=== PATIENT | female | born 1960 | race Caucasian/White ===

== ENCOUNTER 2021-04-17 15:35 | Inpatient (IN) | payer OTHER, SELFPAY ==
[~2021-04-17] VITALS: Ht 154.9 cm; Wt 54.0 kg
[2021-04-17 15:35] VITALS: BP_SYST 128
--- NOTE | 2021-04-17 15:35 | NUR ---
BROUGHT IN BY [facility] AND PLACED IN HALLWAY, TRIAGED, REPORT GIVEN TO MIRTHA
--- NOTE | 2021-04-17 15:40 | NUR ---
Pt bib EMS from [place] for n/v and failure to thrive x4 days. V/S stable, no acute distress noted.
--- NOTE | 2021-04-17 16:20 | NUR ---
ER Dr. Amaya at bedside examining patient.
--- NOTE | 2021-04-17 17:05 | NUR ---
Patient transported to radiology via gurney, accompanied by staff.
--- NOTE | 2021-04-17 17:05 | NUR ---
# 20 gauge angiocath placed to LFA. Use of asceptic technique. Opsite placed over site. Blood return noted. Blood for lab drawn from site. Flushed with 10 cc of normal saline. No evidence of infiltration noted. Patient tolerated well.
[2021-04-17] MEDS ORDERED: MORPHINE 2 MG/ML INJ. SYRINGE IVP ONE ×2 (17:15→20:15)
[2021-04-17 17:31] LABS: BASOPHILS % (AUTO) 0.3 % (0.0-2.0); EOSINOPHILS # (AUTO) 0.3 K/uL (0.0-0.4); EOSINOPHILS % (AUTO) 1.9 % (0.0-4.0); HEMATOCRIT 26.3 % (36-48); HEMOGLOBIN 8.9 g/dL (12.0-16.0); LYMPHOCYTES # (AUTO) 0.7 K/uL (1.0-5.5); MEAN CORPUSCULAR HEMOGLOBIN 35 pg (27-31); MEAN CORPUSCULAR HGB CONC 34 % (32-36); MEAN CORPUSCULAR VOLUME 103 fL (79.0-98.0); MONOCYTES # (AUTO) 0.9 K/uL (0.0-1.0); NEUTROPHILS # (AUTO) 11.4 K/uL (1.8-7.7); NEUTROPHILS % (AUTO) 85.8 % (40.0-70.0); PLATELET COUNT (AUTO) 182 K/uL (130-430); RED BLOOD CELL COUNT(AUTO) 2.54 MIL/uL (4.2-6.2); WHITE BLOOD COUNT (AUTO) 13.3 K/uL (4.8-10.8)
[2021-04-17 17:49] LABS: ANION GAP 11 (5-15); CALCIUM 8.4 mg/dL (8.4-11.0); CHLORIDE 97 mmol/L (98-107); CREATININE 1.17 mg/dL (0.55-1.30); GLUCOSE 173 mg/dL (70-99); SODIUM SERUM 133 mmol/L (136-145); UREA NITROGEN, BLOOD 24 mg/dL (8-21)
[2021-04-17 18:08] LABS: ALANINE AMINOTRANSFERASE 32 U/L (12-78); ALBUMIN 2.5 g/dL (3.4-4.8); ASPARTATE AMINOTRANSFERASE 77 U/L (10-37); LIPASE 38 U/L (73-393); PHOSPHORUS 3.8 mg/dL (2.7-4.5); TOTAL BILIRUBIN 3.7 mg/dL (0.0-1.0)
[2021-04-17 18:14] LABS: ALCOHOL, BLOOD < 3 mg/dL (<10); GFR AFRICAN AMERICAN 60 mL/min (>90); INR 1.2 (0.8-1.2); POTASSIUM 2.6 mmol/L (3.5-5.1); PROTHROMBIN TIME 13.2 SECS (9.5-12.5)
[2021-04-17] MEDS ORDERED: KCL 40 mEq in 100 mL (PREMIX) 100 ML IV ONE (18:15)
[2021-04-17] MEDS ORDERED: PIPERACILLIN/TAZO 3.375 GM in NS 50 ML IV ONE (18:15)
[2021-04-17] MEDS ORDERED: VANCOMYCIN HCL 1,000 MG in NS 250 ML IV ONE (18:15)
[2021-04-17] MEDS ORDERED: POTASSIUM CHLORIDE 20 MEQ/PKT PACKET PO ONE (18:15)
[2021-04-17] MEDS ORDERED: POTASSIUM CHLORIDE 40 MEQ in NS 250 ML IV ONE (18:30)
[2021-04-17] MEDS ORDERED: VANCOMYCIN HCL 1000 MG/VIAL IV ONE (18:31)
[2021-04-17] MEDS ORDERED: PIPERACILLIN/TAZOBACTAM 3.375 GM/VIAL (ZOSYN) IV ONE (18:31)
--- NOTE | 2021-04-17 19:00 | NUR ---
Care of patient endorsed to MUKESH Serrano. Pt currently resting in bed, no acute distress noted.
[2021-04-17 20:25] LABS: BILIRUBIN,URINE NEGATIVE (NEGATIVE); BLOOD, URINE TRACE (NEGATIVE); CLARITY/URINE CLEAR (CLEAR); COLOR,URINE YELLOW (YELLOW); GLUCOSE,URINE NEGATIVE (NEGATIVE); KETONES,URINE NEGATIVE (NEGATIVE); LEUKOCYTE ESTERASE ,URINE NEGATIVE (NEGATIVE); NITRITE, URINE NEGATIVE (NEGATIVE); PROTEIN URINE NEGATIVE (NEGATIVE); UROBILINOGEN,URINE 0.2 (0.2-1.0)
[2021-04-17 20:27] LABS: BACTERIA,URINE None Seen /HPF (None Seen); CALCIUM PHOSPHATE CRYSTALS,UR None Seen /HPF (None Seen); TRICHOMONAS,URINE None Seen /HPF (None Seen); WBC,URINE NONE SEEN /HPF (0-3)
[2021-04-17] MEDS ORDERED: MAGNESIUM SULFATE 50 ML IV ONE (20:30)
--- NOTE | 2021-04-17 20:41 | NUR ---
VSS no s/s of acute distress Resting on gurney
--- NOTE | 2021-04-17 21:00 | NUR ---
IVF + K replacement well tolerated
--- NOTE | 2021-04-17 22:05 | NUR ---
Dr. Amaya ordered more morphone for pain control, effective AEB pt stated " feeling a little better "
--- NOTE | 2021-04-17 23:00 | NUR ---
IV Mag replacement well tolerated. Dr. Melara at bedside for pt eval
[2021-04-17] MEDS ORDERED: ALLO100T PO (23:12)
[2021-04-17] MEDS ORDERED: PANT20TA2 PO (23:12)
[2021-04-17] MEDS ORDERED: INSU100V9 SQ (23:12)
[2021-04-17] MEDS ORDERED: RIFA200T10 PO (23:12)
[2021-04-17] MEDS ORDERED: LEVA1.2527 NEB (23:12)
[2021-04-17] MEDS ORDERED: SPIRIVA INH (23:12)
[2021-04-17] MEDS ORDERED: AMLO2.5T2 PO (23:12)
[2021-04-17] MEDS ORDERED: LACT10SO6 PO (23:12)
[2021-04-17] MEDS ORDERED: BUDE6HFA INH (23:12)
[2021-04-17] MEDS ORDERED: TRAM50TA2 PO (23:12)
[2021-04-17] MEDS ORDERED: POTA20TA83 PO (23:12)
[2021-04-17] MEDS ORDERED: FURO40SO5 PO (23:12)
[2021-04-17] MEDS ORDERED: SPIR25TA6 PO (23:12)
[2021-04-17] MEDS ORDERED: ACET325T PO ×2 (23:12)
[2021-04-17] MEDS ORDERED: traMADol HCL HCL 50 MG TABLET (ULTRAM) PO PRN ×2 (23:30→23:45)
[2021-04-17] MEDS ORDERED: INSULIN REGULAR, HUMAN 100 UNITS/ML, 10 ML VIAL (humuLIN R) SUBCUT PRN (23:30)
[2021-04-17] MEDS ORDERED: ACETAMINOPHEN 325 MG TABLET PO PRN ×2 (23:30)
[2021-04-17] MEDS ORDERED: DEXTROSE 50% JECT 50 ML DISP.SYRIN IVP PRN (23:30)
[2021-04-17] MEDS ORDERED: ONDANSETRON HCL 4 MG/2 ML VIAL IVP PRN (23:45)
[2021-04-18] VITALS (7 sets, daily range): BP systolic 116–132
--- NOTE | 2021-04-18 00:15 | NUR ---
Patient will be admitted to care of Dr. Melara. Admitted to Tele unit. Will go to room 122. Belongings list completed. Complete and up to date summary report printed. SBAR report to be given at bedside with opportunity for questions.
--- NOTE | 2021-04-18 00:15 | NUR ---
pt.received via er-dept.pt's repost britney navarrorn.pt.presents admit dx pna,sepsis.pt.presents iv access location;lt.forearm iv lock. pt. presents congestion;o2 sat%91%w u/out o2 therapy.pt.presents activity status bedrest.lower extremities weakness. pt.presents wounds;location;lt.lower extremity.call light/telephone placed w/in access of the pt.
--- NOTE | 2021-04-18 00:15 | NUR ---
Transfer to Tele via ACLS protocol. Licensed nurse present. IV present no signs or symptoms of infiltration.
[2021-04-18] MEDS: AZITHROMYCIN 500 MG in NS 250 ML IV SCH (01:21)
[2021-04-18] MEDS ORDERED: AZITHROMYCIN 500 MG/VIAL (ZITHROMAX) IV ONE (01:21)
[2021-04-18] MEDS ORDERED: PIPERACILLIN/TAZOBACTAM 3.375 GM/VIAL (ZOSYN) IV ONE (01:21)
[2021-04-18] MEDS: PIPERACILLIN/TAZO 3.375/DEX-IS 50 ML IV SCH ×5 (01:21→23:48)
[2021-04-18] MEDS: IPRATROPIUM/ALBUTEROL SULFATE 3 ML AMPUL.NEB (DUONEB) INH PRN ×2 (01:46→10:35)
[2021-04-18] MEDS: LR 1,000 ML IV SCH ×3 (02:00→22:10)
[2021-04-18] MEDS: MORPHINE 4 MG INJ. 4 MG/ML VIAL IVP PRN (03:26)
[2021-04-18] MEDS: RIFAXIMIN 200 MG TABLET PO SCH ×3 (05:29→21:55)
--- NOTE | 2021-04-18 06:30 | NUR ---
i have initiated the iv fluids abx zosyn,zithromax administration.blood glucose assessed 178mg/dl.sliding scale initiated@201mg/pt.required morphine ivp. ordered ;morphine 2mg ivp q-4hrs/prn.pt.presented wounds;lt.lower extremity/sacrum.i have attended to the photographs/wound care wcn order place.pt.repositioned q-2hrs.o2-therapy placed 02-sat%=98%.2l/alba.call light/telephone place w/in access of the pt.
[2021-04-18 06:59] LABS: BASOPHILS % (AUTO) 0.3 % (0.0-2.0); EOSINOPHILS # (AUTO) 0.3 K/uL (0.0-0.4); EOSINOPHILS % (AUTO) 2.2 % (0.0-4.0); HEMATOCRIT 23.6 % (36-48); HEMOGLOBIN 7.7 g/dL (12.0-16.0); LYMPHOCYTES # (AUTO) 0.8 K/uL (1.0-5.5); LYMPHOCYTES % (AUTO) 5.6 % (20.5-51.5); MEAN CORPUSCULAR HEMOGLOBIN 35 pg (27-31); MEAN CORPUSCULAR HGB CONC 33 % (32-36); MEAN CORPUSCULAR VOLUME 105 fL (79.0-98.0); MONOCYTES # (AUTO) 1.1 K/uL (0.0-1.0); MONOCYTES % (AUTO) 8.2 % (1.7-9.3); NEUTROPHILS # (AUTO) 11.5 K/uL (1.8-7.7); NEUTROPHILS % (AUTO) 83.7 % (40.0-70.0); PLATELET COUNT (AUTO) 169 K/uL (130-430); RED BLOOD CELL COUNT(AUTO) 2.25 MIL/uL (4.2-6.2); RED CELL DISTRIBUTION WIDTH 18.7 % (9.0-15.0); WHITE BLOOD COUNT (AUTO) 13.8 K/uL (4.8-10.8)
--- NOTE | 2021-04-18 08:15 | NUR ---
PT. REQUESTED BREATHING TX, UPON RETURNING WITH MEDICATION, PT. WAS ASLEEP AND WANTS TO TAKE TX AT LATER TIME. NO ACUTE DISTRESS NOTED AT THIS TIME, WILL CONTINUE TO MONITOR.
[2021-04-18] MEDS: LACTULOSE 20 GM/30 ML UDC PO SCH ×2 (08:43→21:48)
[2021-04-18] MEDS: SPIRONOLACTONE 25 MG TABLET (ALDACTONE) PO SCH (08:44)
[2021-04-18] MEDS: ALLOPURINOL 100 MG TABLET (ZYLOPRIM) PO SCH ×2 (08:44→21:48)
[2021-04-18] MEDS: amLODIPine BESYLATE 5 MG TABLET PO SCH (08:45)
[2021-04-18] MEDS: POTASSIUM CHLORIDE 20 MEQ TAB.PRT.SR PO SCH ×3 (08:45→21:49)
[2021-04-18 08:49] LABS: CALCIUM 7.4 mg/dL (8.4-11.0); CREATININE 1.05 mg/dL (0.55-1.30); TOTAL BILIRUBIN 3.1 mg/dL (0.0-1.0)
[2021-04-18 08:53] LABS: POTASSIUM 2.9 mmol/L (3.5-5.1)
[2021-04-18] MEDS ORDERED: POTASSIUM CHLORIDE 10 MEQ TAB.PRT.SR PO SCH (09:00)
[2021-04-18] MEDS ORDERED: NON-FORMULARY MEDICATION (Lactulose 30 GM) PO SCH (09:00)
--- NOTE | 2021-04-18 09:58 | NUR ---
CT CHEST W/O CONTRAST: PATIENT TO RADIOLOGY VIA WHEELCHAIR BY TECH IN STABLE CONDITION.
--- NOTE | 2021-04-18 10:45 | NUR ---
Nutrition Update Yfn Scale 11 noted. Pt admitted for sepsis, pneumonia. Diet: Mechanical soft, CCHO low carb-45 gm diet w/ Glucerna BID BMI: 22.4 kg/m2 RD to follow per nutrition care standards.
[2021-04-18] MEDS ORDERED: POTASSIUM CHLORIDE 20 MEQ TAB.PRT.SR PO ONE (12:30)
--- NOTE | 2021-04-18 12:46 | NUR ---
Md Rounds: Patient seen by Dr. Melara and informed him patient is a hard stick,with orders for picc line placement.
--- NOTE | 2021-04-18 12:55 | NUR ---
CONSULTATION PAGED/CALLED Reason for Consultation: COPD Person Who was Notified: ALFRED Consulting Physician: BRADY Sheet Metal Shop Helper Specialty: Ordering Physician: AMANDA
--- NOTE | 2021-04-18 12:58 | NUR ---
CONSULTATION PAGED/CALLED Reason for Consultation: ANEMIA Person Who was Notified: JOSH Consulting Physician: KEITH Educational Assistant Specialty: GI Ordering Physician: AMANDA
--- NOTE | 2021-04-18 13:05 | NUR ---
WOUND EVALUATION: Late note for 04/18/2021 at 1305 secondary to patient care. Wound Consult received from Dr. Melara. Thank you, Dr. Melara, for the consult. Patient received in a [place] Bed with an IsoFlex TAMMI mattress, awake, alert, confused. Patient is unable to turn in bed independently. Yfn Score is an 11. Past Medical History: Diabetes Mellitus, COPD, Anemia, Hypertension, Alcoholism, Asthma, Renal Disease, Hyperuricemia, GERD, tobacco use. Recent Labs: WBC 13.8, RBC 2.25, hemoglobin 7.7, hematocrit 23.6, potassium 2.9, BUN 20, creatinine 1.05, GFR 56, glucose 194, POC glucose 186, calcium 7.4, AST 50, ALT 26, alkaline phosphatase 270, serum total protein 6.1, albumin 2.0, PT 13.2. Microbiology: Blood culture results x2 in progress. Urine culture results in progress. MRSA screen results in progress. Intrinsic factors that delay wound healing: Diabetes Mellitus, COPD, Anemia, Alcoholism, Asthma, Renal Disease, tobacco use. Extrinsic factors that delay wound healing: Decreased mobility. Wound Assessment: 1. Left Distal Anterior Johnson: Unstageable pressure ulcer, present on admission. Wound bed has 60% yellow slough, 35% black slough, 5% red tissue. No odor, scant to small yellow drainage. Periwound intact with scar tissue. Surrounding tissue has blanchable redness. Wound measures 8.3 cm x 5.0 cm. Recommend: Cleanse wound with normal saline. Apply moisture barrier cream to candelaria-wound. Apply Venelex ointment to wound bed. Cover with foam dressing. Perform wound care daily, and as needed for dressing soiling or dislodgement. Also recommend: Encourage and assist patient with repositioning side to side only 2 hours with pillow support and off-load pressure areas with pillows for pressure re-distribution. Offload, elevate and float bilateral heels with pillows. Perform skin care and monitor skin integrity Q shift. Use moisture barrier cream on buttocks and other moisture susceptible areas QID and as needed for soiling. Initiate low air-loss therapy.
[2021-04-18 14:21] LABS: FREE T4 (FREE THYROXINE) 1.4 ng/dl (0.8-1.5); THYROID STIMULATING HORMONE 5.55 uIu/mL (0.36-3.74)
[2021-04-18 14:23] LABS: TOTAL IRON BIND. CAPACITY 152 ug/dL (250-450)
--- NOTE | 2021-04-18 16:00 | NUR ---
Midline Placement: Midline placement done.No problem.
--- NOTE | 2021-04-18 16:08 | NUR ---
Dietitian Recommendations * Mechanical soft, CCHO low carb-45 gm diet w/ Glucerna BID, Nelson BID (supplements provide an additional 620 kcal/day, 25 gm protein/day) RODRI, HANNAH Please refer to Nutrition Assessment for details. Addendum: 04/18/21 at [address] Amended: Links added.
[2021-04-18 16:19] LABS: INR 1.2 (0.8-1.2); PROTHROMBIN TIME 13.2 SECS (9.5-12.5)
--- NOTE | 2021-04-18 18:49 | NUR ---
closing notes: Pt in bed resting, PICC line in place and patent. No s/s of respiratory distress, NC at 2L. Dinner at bedside.
--- NOTE | 2021-04-18 19:30 | NUR ---
CHANGE OF SHIFT; endorsed by day shift. with DX PNA. on bed alarm/ call light within reach.
[2021-04-18] MEDS: ALBUTEROL SULFATE 0.083% 2.5 MG/3 ML VIAL.NEB INH SCH (19:36)
[2021-04-18] MEDS: BUDESONIDE 0.5 MG/2 ML AMPUL.NEB INH SCH (19:37)
[2021-04-18] MEDS: IPRATROPIUM BROM 0.5 MG/2.5 ML VIAL.NEB (ATROVENT) INH SCH (19:37)
--- NOTE | 2021-04-18 20:00 | NUR ---
OTES: pt. checked, getting her breathing treatment, on high fowlers position. pt. friend/room mate at bedside. pt. noted short of breath non exertion, sounds gurgly, productive cough but unable to expectorate. IV via rt. upper arm with midline catheter. another IV lock on left forearm. pt. gets incontinent. bed alarm on. will put on 2 liters per nasal canulla after treatment. on maintenance planning clerk and shows sinus tach.
[2021-04-18] MEDS ORDERED: INSULIN GLARGINE 100 UNITS/ML 10 ML VIAL SQ SCH (21:00)
[2021-04-19] MEDS: MORPHINE 4 MG INJ. 4 MG/ML VIAL IVP PRN ×2 (00:03→14:10)
[2021-04-19] MEDS: AZITHROMYCIN 500 MG in NS 250 ML IV SCH (00:05)
[2021-04-19] MEDS: ALBUTEROL SULFATE 0.083% 2.5 MG/3 ML VIAL.NEB INH SCH ×4 (00:39→19:41)
[2021-04-19] MEDS: IPRATROPIUM BROM 0.5 MG/2.5 ML VIAL.NEB (ATROVENT) INH SCH ×4 (00:39→19:41)
--- NOTE | 2021-04-19 01:35 | NUR ---
NOTES: pt. getting very anxious, wants to get out of bed, verbalized that she is scared, charge nurse was there in the room. pt. saying she can't breathe, O2 on @ 2liters per nasal cannula, O2 sat 88-90%. still with productive cough but unable to expectorate. called RT for breathing treatment. pt. incontinent and changed pads. pt.is sinus tach HR 130
--- NOTE | 2021-04-19 01:45 | NUR ---
NOTES :RT at bedside and pt. removing mask, stayed with pt. to keep mask for the breathing treatment, still saying she cant breathe, suctioned nasally with small amts. of sputum, also use yankauer for oral suction. pt. was put on oximizer by RT.
[2021-04-19 02:27] VITALS: BP_SYST 138
[2021-04-19 04:45] VITALS: BP_SYST 138
[2021-04-19 05:08] LABS: FOLATE (FOLIC ACID) 14.1 ng/mL (>3.0)
--- NOTE | 2021-04-19 05:10 | NUR ---
NOTES: called Dr. Leal about pt. condition. O2 sat staying 89% on 10 liters O2 per oximizer. stat ABG ordered. RT informed.
--- NOTE | 2021-04-19 05:30 | NUR ---
NOTES: called Dr. Leal for ABG result with orders. (see orders). ordered BIPAP and will put restraints. been trying to call family but no number on the face sheet, called [place] but the number was a neighbor .
[2021-04-19] MEDS: PIPERACILLIN/TAZO 3.375/DEX-IS 50 ML IV SCH ×3 (05:47→18:03)
[2021-04-19] MEDS: LR 1,000 ML IV SCH ×2 (05:49→09:29)
--- NOTE | 2021-04-19 05:50 | NUR ---
NOTES: pt. phone and was able to charge and retrieve her sister Sahra solano. charge nurse talked to her , pt. wants her to come. pt. getting confused, keep saying " she is gonna ". pt. keeps taking off O@. pt. repositioned, changed pads. had loose stool and sent for occult blood and sputum for culture as ordered.
[2021-04-19] MEDS ORDERED: ALPRAZolam 0.25 MG TABLET PO PRN (06:00)
[2021-04-19] MEDS: RIFAXIMIN 200 MG TABLET PO SCH ×2 (06:00→15:49)
--- NOTE | 2021-04-19 06:00 | NUR ---
NOTES: RT set up the BIPAP, just waiting for the sister to come. condition guarded.
--- NOTE | 2021-04-19 06:40 | NUR ---
Closing nots; pt. sister Sahra here and updated on pt. status including BIPAP and restraints, need to sign for consent and did. for close observation. IVF patent, IV antibiotic given. PCR for COVID, placed on isolation for PUI Covid. will endorse to incoming shift. CXR done at bedside. rdered arterial and venous doppler of both lower extremity. noted left eg wpound and foot cyanotic and informed MD. bed alarm on.
[2021-04-19 07:27] LABS: BASOPHILS # (AUTO) 0.1 K/uL (0.0-0.2); BASOPHILS % (AUTO) 0.3 % (0.0-2.0); EOSINOPHILS # (AUTO) 0.3 K/uL (0.0-0.4); EOSINOPHILS % (AUTO) 1.5 % (0.0-4.0); HEMATOCRIT 27.5 % (36-48); HEMOGLOBIN 8.7 g/dL (12.0-16.0); LYMPHOCYTES # (AUTO) 0.4 K/uL (1.0-5.5); LYMPHOCYTES % (AUTO) 1.8 % (20.5-51.5); MEAN CORPUSCULAR HEMOGLOBIN 34 pg (27-31); MEAN CORPUSCULAR HGB CONC 32 % (32-36); MEAN CORPUSCULAR VOLUME 108 fL (79.0-98.0); MONOCYTES # (AUTO) 1.7 K/uL (0.0-1.0); MONOCYTES % (AUTO) 7.4 % (1.7-9.3); NEUTROPHILS # (AUTO) 20.4 K/uL (1.8-7.7); PLATELET COUNT (AUTO) 276 K/uL (130-430); RED BLOOD CELL COUNT(AUTO) 2.56 MIL/uL (4.2-6.2); RED CELL DISTRIBUTION WIDTH 18.9 % (9.0-15.0); WHITE BLOOD COUNT (AUTO) 22.9 K/uL (4.8-10.8)
[2021-04-19] MEDS: methylPREDNISolone SOD SUCC 40 MG/ML VIAL IVP SCH ×3 (07:39→18:03)
--- NOTE | 2021-04-19 08:00 | NUR ---
Morning Rounds: Pt. sitting in bed,on high fowlers position. pt. friend/room mate at bedside. pt. noted short of breath non exertion, sounds gurgley, productive cough but unable to expectorate. IV via ONI with midline catheter, another IV lock on left forearm. pt. incontinent. bed alarm on, and in locked low position. On ekg monitor tech and shows sinus tach.
[2021-04-19] MEDS: BUDESONIDE 0.5 MG/2 ML AMPUL.NEB INH SCH ×2 (08:03→19:41)
--- NOTE | 2021-04-19 08:03 | NUR ---
rt notes 0803 Pt placed on bipap per MD order, pt tolerating well. KS> 92%. pt kept on trying to remove mask, pt on restraint. will continue to monitor pt.
[2021-04-19 08:28] LABS: CALCIUM 8.1 mg/dL (8.4-11.0); CREATININE 1.22 mg/dL (0.55-1.30); PHOSPHORUS 3.6 mg/dL (2.7-4.5); POTASSIUM 5.7 mmol/L (3.5-5.1); TOTAL BILIRUBIN 3.5 mg/dL (0.0-1.0)
[2021-04-19] MEDS ORDERED: BALSAM PERU/CASTOR OIL 60 GM OINT...G. TP SCH (09:00)
[2021-04-19] MEDS ORDERED: PANTOPRAZOLE SODIUM 40 MG TAB PO SCH (09:00)
[2021-04-19 09:20] VITALS: BP_SYST 122
[2021-04-19] MEDS: POTASSIUM CHLORIDE 20 MEQ TAB.PRT.SR PO SCH (09:22)
[2021-04-19] MEDS: SPIRONOLACTONE 25 MG TABLET (ALDACTONE) PO SCH (09:23)
[2021-04-19] MEDS: amLODIPine BESYLATE 5 MG TABLET PO SCH (09:23)
[2021-04-19] MEDS: LACTULOSE 20 GM/30 ML UDC PO SCH (09:24)
[2021-04-19] MEDS: ALLOPURINOL 100 MG TABLET (ZYLOPRIM) PO SCH (09:24)
--- NOTE | 2021-04-19 12:00 | NUR ---
Lunch Rounds: Pt. sitting in bed, on high fowlers position. pt. friend/room mate at bedside. pt. noted does not like BiPaP mask on and tries to take it off, sounds gurgley, productive cough but unable to expectorate. Bilateral wrist restraints in place. IV via ONI with midline catheter, another IV lock on left forearm. pt. incontinent. bed alarm on, and in locked low position. On color television console monitor and shows sinus tach.
[2021-04-19 12:29] VITALS: BP_SYST 126
[2021-04-19] MEDS ORDERED: FUROSEMIDE 20 MG/2 ML VIAL IVP ONE (13:15)
--- NOTE | 2021-04-19 14:33 | NUR ---
CONSULTATION PAGED REASON FOR CONSULTATION:CHF WAS CONSULT CALED?Y PERSON WHO WAS NOTIFIED:JONES CONSULTING PHYSICIAN:ARGENTINA FLEMING IN SHOP SERVICE TECHNICIAN SPECIALTY:CARDIO IN SHOP SERVICE TECHNICIAN PHONE [phone]: REQUESTING PHYSICIAN:ANGELICA BARRAGAN
--- NOTE | 2021-04-19 16:00 | NUR ---
BiPaP break: RT switch to non rebreather mask at 10L, at 90%. Gave medication and changed, pt desat to low 70's high 60's, attempting to pull the mask off. Had RT put back on BiPap, SpO2 back to 90%.
--- NOTE | 2021-04-19 16:00 | NUR ---
rt notes 1600 tried to offload pt from bipap but within 10-15 mins, pt desaturated to 60s per RN. Pt placed back to bipap, will continue to monitor pt. saturating 93%.
[2021-04-19 16:10] VITALS: BP_SYST 124
--- NOTE | 2021-04-19 18:30 | NUR ---
Cardio rounds: Dr Schwab saw pt, seen venous arterial preliminary results. Did venous Doppler on both lower extremities. then ordered Lovenox and medical records from [facility], pt was admitted there 2 weeks ago. will endorse to overnight associate.
[2021-04-19] MEDS ORDERED: *LOVENOX 1MG/KG Q12H/PHARMACY XX ONE (18:45)
--- NOTE | 2021-04-19 18:49 | NUR ---
Closing Notes: Pt resting in high fowlers, with Bipap, bilateral wrist restraints, isolation precautions for PUI in place, SPO2 at 95%. pt calmer then this morning. Order for CT of bilateral lower extremities w/wo contrast.
--- NOTE | 2021-04-19 19:15 | NUR ---
OPENING NOTES Patient resting in bed -no s/s pain or distress noted. Respirations even and unlabored - head of bed elevated. IV site patent - no s/s redness, infection, or infiltration. Bed locked and in lowest position. Call light within reach. Bed alarm on.
[2021-04-19 20:00] VITALS: BP_SYST 124
[2021-04-19] MEDS ORDERED: ENOXAPARIN SODIUM 60 MG/0.6 ML SYRINGE SUBCUT SCH (21:00)
--- NOTE | 2021-04-19 21:24 | NUR ---
CONSENT RECEIVED FOR CTA LOWER EXTREMITY CONSENT GIVEN BY SISTER FILIBERTO AT THISTIME
[2021-04-19] MEDS ORDERED: IOHEXOL 350 mgI/mL, 150 ML INFUS..BTL IV ONE (21:56)
--- NOTE | 2021-04-19 22:31 | NUR ---
PATIENT LEAVES TO RADIOLOGY ESCORTED OUT BY GLOBAL CEO LEO WITH CONSENT SIGNED. INFORMED PATIENT IS CURRENTLY ON BIPAP AND NEEDS O2.
--- NOTE | 2021-04-19 23:00 | NUR ---
PATIENT ARRIVES BACK FROM RADIOLOGY WITH REINSTATEMENT CLERK "LORELEI" Patient not receiving O2 therapy whilst on bed returning to room Addendum: 04/20/21 at 0740 by Afshin Melissa RN STATES THEY ASKED A NURSE IN THE HALLWAY THEIR VITALS, LOW BP AND HIGH HEART RATE. UPON RECEIVING PATIENT EYES WERE BULGING, UNRESPONSIVE. CYANOTIC SKIN. Addendum: 04/20/21 at 0820 by Afshin Melissa RN REINSTATEMENT CLERK LORELEI STATES THIS AT TIME OF RETURNING TO ROOM WHEN RN NOTICES PATIENT EYES BULGING, UNRESPOSNIVE. SKIN CYANOTIC. INFORMED BY COMPONENT ENGINEER HEIDI TELE-RHYTHM SHOWS ASYSTOLE. RADIOLOGY IS OUTSIDE THE RANGE OF THE TELEMONITOR. UPON RETURN TO 122B, PATIENT IS WITHIN RANGE AGAIN. ASYSTOLE SHOWS SOON PATIENT RETURNS - RN SHOWS UP TO CHECK ROOM 122B TO SEE IF PATIENT IS THERE.
--- NOTE | 2021-04-19 23:01 | NUR ---
CODE BLUE INITIATED NO PULSE FELT UPON RETURNING FROM RADIOLOGY
--- NOTE | 2021-04-19 23:34 | NUR ---
CALLED FAMILY APPROXIMATELY AT THIS TIME, CHILD ABUSE WORKER BELLA CALLS FAMILY MEMBER FILIBERTO DOMINGUEZ TO NOTIFY OF PATIENT TIME OF ANNOUNCED.
--- NOTE | 2021-04-19 23:37 | NUR ---
DR PATEL NOTIFIED OF PT EXPIRING
--- NOTE | 2021-04-19 23:45 | NUR ---
DR BRADY ABREU IN HOSPITAL AWARE OF PT EXPIRING
--- NOTE | 2021-04-19 23:54 | NUR ---
LINUX SERVER ENGINEER AND [employer] CALLED LINUX SERVER ENGINEER CASE AGENT HO CASE CLOSED [employer] , AGENT NIKITA
--- NOTE | 2021-04-20 00:47 | NUR ---
NOTIFIED DOCTOR BULMARO NOTIFED EXCHANGE RANDI THAT PT
--- NOTE | 2021-04-20 01:30 | NUR ---
APPROXIMATELY AROUND THIS TIME, CALLED SISTER FILIBERTO THOMPSON REGARDING MORTUARY Called back and forth within the hour regarding mortuary of choice. Filiberto Thompson is sister, called. Initially states "I am still figuring out what mortuary." Asked for address to find nearest mortuary - gives name "[facility]" [place] [phone]. [facility]
--- NOTE | 2021-04-20 01:35 | NUR ---
APPROXIMATELY AT THIS TIME, CALLED [facility] INFORMED [facility] OF PATIENT, FAMILY MEMBER FILIBERTO PICKS THIS SERVICE. STATES WILL BE ABLE TO POLICE CRIME SCENE TECHNICIAN IN MORNING.
--- NOTE | 2021-04-20 05:34 | NUR ---
[facility] STATES PICKUP TIME BETWEEN [phone].
[2021-04-20] MEDS ORDERED: EPINEPHrine JECT 0.1 MG/ML SYR ONE (08:19)
[2021-04-20] MEDS ORDERED: SODIUM BICARBONATE 8.4% JECT 50 MEQ/50 ML SYRINGE ONE (08:19)
[2021-04-20] MEDS ORDERED: CALCIUM CHLORIDE 1 GM/10 ML DISP.SYRIN (14 mEq Ca++/SYR) ONE (08:19)
[2021-04-20] MEDS ORDERED: ATROPINE SULFATE 1 MG/10 ML SYRINGE IVP ONE (08:19)
[2021-04-20] MEDS ORDERED: DEXTROSE 50% JECT 50 ML DISP.SYRIN ONE (08:19)
[2021-04-20] MEDS ORDERED: NS 1000 ML IV.SOLN IV ONE (08:19)
[2021-04-20] MEDS ORDERED: FUROSEMIDE 20 MG TABLET PO SCH (09:00)
== END 2021-04-19 22:34 | DRG 720 ==
LOC: SED 15:35 → STU 21:53
PROVIDERS: ADMIT Internal Medicine; ATTEND Internal Medicine
PROC: 5A12012 Performance of Cardiac Output, Single, Manual (ICD-10-PCS; principal; 2021-04-19)
PROC: 0BH17EZ Insertion of Endotracheal Airway into Trachea, Via Natural or Artificial Opening (ICD-10-PCS; 2021-04-19)
PROC: 5A09357 Assistance with Respiratory Ventilation, Less than 24 Consecutive Hours, Continuous Positive Airway Pressure (ICD-10-PCS; 2021-04-19)
DX: A41.9 Sepsis, unspecified organism (principal); J96.21 Acute and chronic respiratory failure with hypoxia; G93.41 Metabolic encephalopathy; I50.43 Acute on chronic combined systolic (congestive) and diastolic (congestive) heart failure; E43 Unspecified severe protein-calorie malnutrition; E11.52 Type 2 diabetes mellitus with diabetic peripheral angiopathy with gangrene; I96 Gangrene, not elsewhere classified; J18.9 Pneumonia, unspecified organism; H05.20 Unspecified exophthalmos; N17.9 Acute kidney failure, unspecified; J44.0 Chronic obstructive pulmonary disease with (acute) lower respiratory infection; K70.31 Alcoholic cirrhosis of liver with ascites; J44.1 Chronic obstructive pulmonary disease with (acute) exacerbation; I11.0 Hypertensive heart disease with heart failure; I44.7 Left bundle-branch block, unspecified; E87.6 Hypokalemia; F17.210 Nicotine dependence, cigarettes, uncomplicated; I99.8 Other disorder of circulatory system; F10.10 Alcohol abuse, uncomplicated; L97.929 Non-pressure chronic ulcer of unspecified part of left lower leg with unspecified severity; E83.42 Hypomagnesemia; I77.810 Thoracic aortic ectasia; K21.9 Gastro-esophageal reflux disease without esophagitis; I25.10 Atherosclerotic heart disease of native coronary artery without angina pectoris; D64.9 Anemia, unspecified; Y90.0 Blood alcohol level of less than 20 mg/100 ml; I46.9 Cardiac arrest, cause unspecified; Z20.822 Contact with and (suspected) exposure to COVID-19; E79.0 Hyperuricemia without signs of inflammatory arthritis and tophaceous disease; Z74.01 Bed confinement status; Z79.4 Long term (current) use of insulin; Z68.22 Body mass index [BMI] 22.0-22.9, adult; Z79.899 Other long term (current) drug therapy; Z86.718 Personal history of other venous thrombosis and embolism
CPT/HCPCS: 36415; 36600; 71045; 71250-TC; 73590-TC; 73706; 76376; 76700-TC; 80053; 81000; 82140; 82272; 82607; 82746; 82803-TC; 82962; 83036; 83540; 83550; 83605; 83690; 83735; 83880; 84100; 84439; 84443; 84484; 85025; 85610-TC; 85730-TC; 86886; 86900; 86901; 87040-TC; 87070-TC; 87081; 87086; 87205-TC; 93005; 93923; 93970; 94640; 94660; 94760; 96365; 96367; 96368; 96375; 99291; G0378; G0482; J0171; J0456; J0461; J1030; J1940; J2270; J2405; J2543; J3370; J3475; J3480; J7030; J7050; J7613; J7626; Q9967; U0003